=== PATIENT | female | born 1995 | race African-American/Black ===

== ENCOUNTER 2017-06-06 22:11 | Emergency (ER) | payer OTHER ==
[~2017-06-06] VITALS: Ht 165.1 cm; Wt 149.7 kg
[~2017-06-06 22:11] MED LIST: ATIVAN0.5 MG PO; CITRATE OF MAG296 ML PO; PROMS25 WY RECTAL; ZOFRAN ODT4 MG PO
[2017-06-06 22:24] LABS: URINE BILIRUBIN NEGATIVE (Negative); URINE BLOOD NEGATIVE (Negative); URINE COLOR YELLOW; URINE GLUCOSE-RANDOM* NEGATIVE (Negative); URINE KETONES NEGATIVE (Negative); URINE LEUKOCYTES 1+ (Negative); URINE NITRITE NEGATIVE (Negative); URINE PROTEIN (DIPSTICK) 1+ (Negative); URINE SPECIFIC GRAVITY >= 1.030 (1.005-1.035); URINE UROBILINOGEN 0.2 E.U./dl (0.2-1.0)
[2017-06-06 22:26] LABS: URINE CLARITY CLOUDY
[2017-06-06 22:41] LABS: MUCUS 0-3 Light strn/LPF (None Seen); SQUAMOUS 4-10 Moderate /LPF (0-3); URINE WBC 6-15 Few /HPF (0-5)
[2017-06-06 22:42] LABS: URINE RBC 0-2 Rare /HPF (0-2)
[2017-06-06 22:43] LABS: AMORPHOUS URATES Many /LPF (None Seen); BACTERIA 1-9 Few /HPF (None Seen); CRYSTALS None Seen /LPF (None Seen); FINE GRANULAR CASTS 0-3 Few /LPF (None Seen)
[2017-06-06] MEDS ORDERED: GABAPENTIN 100100 MG (22:43)
[2017-06-06 22:44] LABS: WBC CLUMPS Occasional (None Seen)
[2017-06-06] MEDS ORDERED: BRINTELLIX10 MG (22:44)
[2017-06-06] MEDS ORDERED: GEODON20 MG PO (22:44)
[2017-06-06] MEDS ORDERED: KEFLEX500 M1 PO (23:46)
== END 2017-06-06 23:56 | disposition home or self-care (01) ==
LOC: ER 22:11
PROVIDERS: Physician Assistant
DX: N39.0 Urinary tract infection, site not specified (principal); Z88.1 Allergy status to other antibiotic agents